=== PATIENT | male | born 1975 | race Caucasian/White ===

== ENCOUNTER 2017-07-17 15:35 | Day surgery (SDC) | payer OTHER ==
[2017-07-17] MEDS ORDERED: NALOXONE HCL INJ/PF 0.4 MG/1 ML SDV ONE (16:38)
[2017-07-17] MEDS ORDERED: EPINEPHRINE INJ 1 MG/10 ML DISP.SYRIN ONE (16:39)
[2017-07-17] MEDS ORDERED: FLUMAZENIL INJ 0.5 MG/5 ML VIAL ONE (16:39)
[2017-07-17] MEDS ORDERED: GLUCAGON,HUMAN RECOMB 1 MG INJ ONE (16:39)
[2017-07-17] MEDS ORDERED: FENTANYL CITRATE INJ/PF 100 MCG/2 ML AMPUL ONE (16:39)
[2017-07-17] MEDS: MIDAZOLAM 2 MG/2 ML INJ ONE ×3 (17:20→17:30)
[2017-07-17 18:36] VITALS: BP 117/76
--- NOTE | 2017-07-17 19:44 | OPERATIVE REPORT E ---
Operative Report NAME: RONALD SANDS : 1975 AGE: 42Y DATE OF SURGERY: 07/17/2017 ROOM: PREOPERATIVE DIAGNOSIS: REFLUX DISEASE. POSTOPERATIVE DIAGNOSES: 1. GRADE A ESOPHAGITIS. 2. A 4 CM HIATAL HERNIA. 3. SIGNIFICANT REGURGITATION DURING THE PROCEDURE. 4. IRREGULAR Z-LINE, RULE OUT NEGRON'S ESOPHAGUS. OPERATION: EGD with biopsy. SURGEON: LADONNA AGUDELO M.D. MEDICATIONS: Versed 4 mg, fentanyl 100 mcg. TISSUE REMOVED: Antral biopsy and GE junction biopsy. PROCEDURE: After informed consent obtained from the patient, conscious sedation was achieved. The upper endoscope was then inserted into the esophagus and advanced into the stomach. As soon as I got in the esophagus, the patient was having a lot of belching and prolapsing of his hiatal hernia. There was also some regurgitation. The endoscope was inserted through the duodenum which was normal. The gastric antrum, body, and fundus were normal. He has a 3-5 cm hiatal hernia with a single erosion noted at the Z-line. The Z-line was also irregular and biopsies were taken to rule out intestinal metaplasia. He tolerated the procedure well. PLAN: 1. We will switch Protonix to Dexilant or omeprazole. 2. Consider hiatal hernia repair and fundoplication. 3. Antireflux precautions. DICTATING PHYSICIAN: LADONNA AGUDELO M.D. [id number] PHY#: [id number] ID: [id number] JOB#: [id number] ACCT: [id number] cc:[facility] LADONNA AGUDELO M.D. >
== END 2017-07-17 18:40 | disposition home or self-care (01) ==
LOC: END 15:35
PROVIDERS: ATTEND Internal Medicine Gastroenterology
PROC: 0DB68ZX Excision of Stomach, Via Natural or Artificial Opening Endoscopic, Diagnostic (ICD-10-PCS; 2017-07-17)
PROC: 0DB48ZX Excision of Esophagogastric Junction, Via Natural or Artificial Opening Endoscopic, Diagnostic (ICD-10-PCS; principal; 2017-07-17 16:00)
DX: K21.0 Gastro-esophageal reflux disease with esophagitis (principal); K44.9 Diaphragmatic hernia without obstruction or gangrene; K29.70 Gastritis, unspecified, without bleeding
CPT/HCPCS: 43239; 88342 ×2; 88305 ×2; J2250; J3010; J0171; J1610; J2310; J3490

== ENCOUNTER → 2017-09-12 | Day surgery (SDC) | payer OTHER ==
[~2017-09-12] MED LIST: LIDOCAINE 2% JELLY 5 ML TUBE ONE
== END ==
LOC: END 08:39
PROVIDERS: ATTEND Internal Medicine Gastroenterology
DX: K21.9 Gastro-esophageal reflux disease without esophagitis (principal)
CPT/HCPCS: 91010